=== PATIENT | male | born 1990 | race Caucasian/White ===

== ENCOUNTER 2016-08-19 19:52 | Emergency (ER) | payer BC ==
[2016-08-19] MEDS ORDERED: Silver Sulfadiazine 1% Crm 50 GM Tube TOP ONE (20:54)
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
[2016-08-19 22:53] VITALS: BP 142/90
== END 2016-08-19 21:20 | disposition home or self-care (01) ==
LOC: CC.ED 19:52
DX: T22.212A Burn of second degree of left forearm, initial encounter (principal); F32.9 Major depressive disorder, single episode, unspecified; Z88.1 Allergy status to other antibiotic agents; Z98.890 Other specified postprocedural states; Z79.899 Other long term (current) drug therapy; Z88.8 Allergy status to other drugs, medicaments and biological substances; X12.XXXA Contact with other hot fluids, initial encounter; Y93.G3 Activity, cooking and baking
CPT/HCPCS: 99282